=== PATIENT | female | born 1990 | race Caucasian/White ===

== ENCOUNTER 2022-07-08 07:39 | Inpatient (IN) ==
[2022-07-08] MEDS ORDERED: LIDOCAINE 1% LOCAL 20 ML VIAL INFIL PRN (07:46)
[2022-07-08] MEDS ORDERED: OXYTOCIN 30 UNITS/500 ML BAG IV PRN ×3 (07:46→17:51)
--- NOTE | 2022-07-08 07:49 | History & Physical Report ---
Date of Service July 08, 2022 Assessment & Plan (1) with 39 completed weeks gestation: (2) Encounter for induction of labor: Plan Fetus category one. Favorable cervix. Dr. Auguste , when he arrives, will make decision with patient on arom now or pit then arom. Patient desires epidural. anticipate . Admission and Anticipated Discharge Date Admission Date: July 08, 2022 History of Present Illness Chief Complaint: induction Primary Care Provider: SANTIAGO Bradford Patient is a 32yowf G who presents for elective induction of labor at 39 1/7 weeks. Notes good fm. no lof/vb. Occasional contractions. and Delivery Plans Transfer into care @ 13 + weeks PCOS conceived on Metformin ASCUS Pap/ +HPV / - x 3 *colpo 02/05 akh GIOVANNI 3 on biopsy- urgent consult to Dr. Vargas's office.--has sched for 03/02 findings consistent, no bx, plan third trimester colpo and then f/u pp Scheduled for 28 week f/u colpo in Apr.--done 05/11/22, no significant changes noted Plan f/u PP with probable excisional procedure. covid x 2, one booster Flu shot given 03/26/22 - AL OB Labs: Hemoglobin 11.6 g/dl (12.0-16.0) L 05/12/22 Hematocrit 35.8 % (34.1-44.9) 05/12/22 Glucose 1 Hour 50 gm Load 79 mg/dl (70-130) 05/12/22 OB Optional Labs: No Data to Display Labs Reviewed: Initial OB Labs 12/11/21 Blood Type & RH O positive Antibody Screen negative HCT/HGB 40.0/13.4 Platelets 232 Hep C IgG 13yrs+ Old neg Pap Test 01/28/21 WNL Chlamydia negative Gonorrhea negative Rubella immune RPR non- reactive Urine Culture/Screen pseudomonas 12/01, mixed urogenital andrew 12/16 LOUANN HBsAg negative HIV negative MCV 90 Ultrasound Genetic OB Labs CF SMA Panorama 12/16/21 MaterniT 21 WNL Quad Screen MASFP declined ak gbs negative. Allergies Allergy/AdvReac Type Severity Reaction Status Date / Time No Known Allergies Allergy Verified 07/07/22 12:25 Home Medications Medication Instructions Recorded Confirmed Type prenat.vits,angela,lct-yogw-spirq 1 tab PO DAILY 01/06/22 07/07/22 History Patient History Medical History History of chicken pox Shingles Surgical History S/P tonsillectomy S/P wisdom tooth extraction Family History Aunt Ovarian cancer Diabetes Denies family history of Prostate cancer Myocardial infarction Breast cancer Colorectal cancer Social History Smoking Status: Never smoker Second Hand Exposure: No; Hx Alcohol Use: No Hx Substance Use: No Visual Impairment: No Limitations Hearing Ability: Normal marital status: marital status details: Deyvi Hurtado (30) [phone] Current Living Situation: Spouse Current Living Situation Comment: lives with spouse, 3 dogs current occupational status: employed 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 Plans excisional procedure PP. Physical Exam Constitutional: WD/WN, vitals as above Cardiovascular: Extremities: + edema (tr); no calf tenderness Gastrointestinal (Abdomen): soft, gravid, nt Genitourinary: cx--3-/-2 toco--rare efm--130s wtih mod variabilty, accels to 160s, no decels Coding Level of Care Code None Diagnoses with 39 completed weeks gestation Z3A.39 Encounter for induction of labor Z34.90
[2022-07-08] MEDS: LACTATED RINGER'S 1,000 ML IV PRN ×3 (08:30→16:15)
[2022-07-08 08:37] LABS: Hemoglobin 10.9 g/dl (12.0-16.0); Mean Corpuscular Hemoglobin 29.4 pg (25.0-34.0); Mean Corpuscular Volume 88.9 fL (80.0-100.0); Mean Platelet Volume 10.6 fL (9.4-12.4); Platelet Count 167 K/uL (130-400); RDW Coefficient of Variation 14.6 % (11.5-14.5); RDW Standard Deviation 46.9 fL (36.4-46.3); Red Blood Count 3.71 M/uL (4.20-5.40); White Blood Count 7.46 K/ul (4.8-10.8)
[2022-07-08] MEDS ORDERED: fentaNYL citrate 100 MCG/2 ML VIAL ONE (09:08)
[2022-07-08] MEDS ORDERED: SODIUM CHLORIDE 0.9% INJ 10 ML VIAL ONE (09:08)
[2022-07-08] MEDS ORDERED: BUPIVACAINE 0.25% 30 ML VIAL ONE (09:08)
[2022-07-08] MEDS ORDERED: ePHEDrine sulfate 50 MG/ML AMP ONE (09:08)
[2022-07-08] MEDS ORDERED: LIDOCAINE 2%/EPINEPHRINE 1:200,000 20 ML SDV ONE (09:08)
[2022-07-08] MEDS ORDERED: fentaNYL 2MCG/ML ROPIVACAINE 1.25MG/ML 100 ML BAG EPI ONE (09:09)
[2022-07-08] MEDS ORDERED: ePHEDrine sulfate 50 MG/ML AMP IV PRN (09:13)
[2022-07-08] MEDS ORDERED: NALBUPHINE HCL INJ 10 MG/ML AMP IV PRN (09:13)
[2022-07-08] MEDS ORDERED: NALOXONE HCL 1 MG in SODIUM CHLORIDE 0.9% 1000ML 1,000 ML IV PRN (09:13)
[2022-07-08] MEDS ORDERED: fentaNYL 2MCG/ML ROPIVACAINE 1.25MG/ML 100 ML BAG EPI PRN (09:13)
[2022-07-08] MEDS ORDERED: NALOXONE HCL 0.4 MG/1 ML VIAL/CARP IV PRN (09:13)
[2022-07-08] MEDS ORDERED: diphenhydrAMINE 50 MG/ML VIAL IV PRN (09:13)
--- NOTE | 2022-07-08 09:13 | Anesthesiology Consultation ---
Date of Service July 08, 2022 Assessment & Plan (1) Encounter for pre-operative examination: Chart Review Chart Review: Acceptable Risk for Surgery and Patient NOT seen in Pre Admission Testing Consults Requested none History Height/Weight Height: 5 ft 2 in Weight: 93.416 kg Allergies Allergy/AdvReac Type Severity Reaction Status Date / Time No Known Allergies Allergy Verified 07/08/22 08:45 Medications Home Medications Medication Instructions Recorded Confirmed Last Taken prenat.vits,angela,ssz-drhk-bsufi 1 tab PO DAILY 01/06/22 07/08/22 07/07/22 20:00 Tums 1 tab PO PRN Heartburn 07/08/22 07/04/22 20:00 Past Medical History Medical History History of chicken pox Shingles Past Family History Family History Aunt Ovarian cancer Diabetes Denies family history of Prostate cancer Myocardial infarction Breast cancer Colorectal cancer Past Surgical History Surgical History S/P tonsillectomy S/P wisdom tooth extraction Social History Smoking Status: Never smoker Hx Alcohol Use: No Hx Substance Use: No substance use type: does not use Physical Exam Vital Signs Last Vital Signs Temp 98.4 F 07/08/22 08:15 Pulse 72 07/08/22 09:11 Resp 18 07/08/22 08:15 BP 120/66 07/08/22 08:15 Pulse Ox 99 07/08/22 09:11 Testing Laboratory Results 07/08/22 08:11
--- NOTE | 2022-07-08 13:33 | Labor Progress Brief Note ---
Date of Service July 08, 2022 Subjective Reason For Note: Routine Evaluation Assessment & Plan (1) Encounter for induction of labor: Plan: MONET clr. Cat 1. Continue pitocin. Vitals normal (2) with 39 completed weeks gestation: Admission and Anticipated Discharge Date Admission Date: July 08, 2022 Physical Exam Genitourinary: Manual OB Exam: + cervical dilation (3.5), + cervical effacement 70%, + station -2 and + amniotic fluid clear OB Exam Monitor Tracing: + external FHT monitor used, + external uterine monitor used, + category I and + normal FHT variability Results & Data ([facility]) Vital Signs (Past 12 Hours) Vital Signs Temp Pulse Resp BP Pulse Ox 07/08/22 08:15 36.9 C 74 18 120/66 07/08/22 13:28 61 07/08/22 13:28 112/63 07/08/22 13:26 100 07/08/22 13:26 61 07/08/22 13:21 95 07/08/22 13:21 71 07/08/22 13:16 100 07/08/22 13:16 65 07/08/22 13:11 100 07/08/22 13:11 67 07/08/22 13:11 119/67 07/08/22 13:06 100 07/08/22 13:06 67 07/08/22 13:01 100 07/08/22 13:01 68 07/08/22 12:56 100 07/08/22 12:56 63 07/08/22 12:40 18 07/08/22 12:40 36.7 C 18 07/08/22 12:55 64 07/08/22 12:55 116/59 L 07/08/22 12:51 100 07/08/22 12:51 62 07/08/22 12:46 100 07/08/22 12:46 70 07/08/22 12:45 92 07/08/22 12:45 62 07/08/22 12:41 100 07/08/22 12:41 71 07/08/22 12:36 100 07/08/22 12:37 93 07/08/22 12:36 70 07/08/22 12:37 67 07/08/22 12:31 100 07/08/22 12:31 77 07/08/22 12:26 100 07/08/22 12:26 63 07/08/22 12:27 65 07/08/22 12:27 129/74 07/08/22 12:23 91 07/08/22 12:23 68 07/08/22 12:21 100 07/08/22 12:21 67 07/08/22 12:18 92 07/08/22 12:18 68 07/08/22 12:16 91 07/08/22 12:16 60 07/08/22 12:12 91 07/08/22 12:12 74 07/08/22 12:12 156/67 H 07/08/22 12:11 98 07/08/22 12:11 76 07/08/22 12:06 99 07/08/22 12:06 61 07/08/22 12:01 96 07/08/22 12:01 64 07/08/22 11:56 97 07/08/22 11:56 65 07/08/22 11:56 57 L 07/08/22 11:56 116/80 07/08/22 11:54 92 07/08/22 11:54 77 07/08/22 11:51 96 07/08/22 11:51 55 L 07/08/22 11:46 97 07/08/22 11:46 51 L 07/08/22 11:41 97 07/08/22 11:41 57 L 07/08/22 11:41 115/79 07/08/22 11:36 99 07/08/22 11:36 58 L 07/08/22 11:31 97 07/08/22 11:32 92 07/08/22 11:31 57 L 07/08/22 11:32 56 L 07/08/22 11:27 55 L 07/08/22 11:27 112/81 07/08/22 11:26 99 07/08/22 11:26 59 L 07/08/22 11:21 97 07/08/22 11:21 57 L 07/08/22 11:20 94 07/08/22 11:20 61 07/08/22 11:16 96 07/08/22 11:16 58 L 07/08/22 11:11 99 07/08/22 11:11 59 L 07/08/22 11:11 112/59 L 07/08/22 11:11 94 07/08/22 11:11 63 07/08/22 11:06 95 07/08/22 11:06 62 07/08/22 11:00 20 07/08/22 11:00 20 07/08/22 11:01 97 07/08/22 11:01 59 L 07/08/22 10:59 94 07/08/22 10:59 60 07/08/22 10:56 96 07/08/22 10:56 59 L 07/08/22 10:56 55 L 07/08/22 10:56 113/64 07/08/22 10:51 96 07/08/22 10:51 67 07/08/22 10:46 98 07/08/22 10:46 61 07/08/22 10:41 95 07/08/22 10:41 59 L 07/08/22 10:42 59 L 07/08/22 10:42 116/59 L 07/08/22 10:37 94 07/08/22 10:37 62 07/08/22 10:36 95 07/08/22 10:36 69 07/08/22 10:31 96 07/08/22 10:31 65 07/08/22 10:26 96 07/08/22 10:26 77 07/08/22 10:27 66 07/08/22 10:27 103/64 07/08/22 07:45 18 07/08/22 07:45 36.9 C 18 07/08/22 10:22 94 07/08/22 10:22 78 07/08/22 10:21 95 07/08/22 10:21 70 07/08/22 10:16 94 07/08/22 10:17 94 07/08/22 10:16 68 07/08/22 10:17 68 07/08/22 10:12 66 07/08/22 10:12 147/61 H 07/08/22 10:11 95 07/08/22 10:11 66 07/08/22 10:06 96 07/08/22 10:06 68 07/08/22 10:01 95 07/08/22 10:01 76 07/08/22 09:56 96 07/08/22 09:56 78 07/08/22 09:56 77 07/08/22 09:56 140/59 L 07/08/22 09:51 97 07/08/22 09:51 79 07/08/22 09:50 75 07/08/22 09:50 127/70 07/08/22 09:46 96 07/08/22 09:46 81 07/08/22 09:46 74 07/08/22 09:46 135/73 07/08/22 09:41 100 07/08/22 09:41 74 07/08/22 09:41 138/76 07/08/22 09:36 97 07/08/22 09:36 78 07/08/22 09:35 85 07/08/22 09:35 123/83 07/08/22 09:31 100 07/08/22 09:31 87 07/08/22 09:29 93 07/08/22 09:29 95 H 07/08/22 09:26 100 07/08/22 09:26 83 07/08/22 09:21 99 07/08/22 09:21 72 07/08/22 09:16 98 07/08/22 09:16 75 07/08/22 09:11 99 07/08/22 09:11 72 07/08/22 09:06 100 07/08/22 09:06 63 07/08/22 07:47 74 120/66 Coding Level of Care Code None Diagnoses Encounter for induction of labor Z34.90 with 39 completed weeks gestation Z3A.39
[2022-07-08] MEDS ORDERED: BENZOCAINE 20% AER SPR 82.5 GM CAN EXT PRN (17:51)
[2022-07-08] MEDS ORDERED: bisacodyL 10 MG SUPP PR PRN (17:51)
[2022-07-08] MEDS ORDERED: DIPHTHERIA/TETANUS/PERTUSSIS 0.5mL SYR/VIAL (Age 7+yrs) IM ONE (17:51)
[2022-07-08] MEDS ORDERED: HYDROCORTISONE ACETATE 25 MG SUPP PR PRN (17:51)
--- NOTE | 2022-07-08 18:10 | Anesthesia Procedure Note ---
Date of Service July 08, 2022 Anesthesia Post Epidural Note Vital Signs Vital Signs: Temp Pulse Resp BP Pulse Ox 98.4 F 88 18 123/78 98 07/08/22 15:50 07/08/22 17:56 07/08/22 15:50 07/08/22 17:56 07/08/22 17:52 Notes Mental Status: alert / awake / arousable and participated in evaluation Nausea / Vomiting: adequately controlled Pain: adequately controlled Airway Patency, RR, SpO2: stable & adequate BP & HR: stable & adequate Hydration State: stable & adequate Neuraxial Anesthesia: was administered and sensory block is resolving Anesthetic Complications: no major complications apparent and Pt Satisfied with anesthetic care Epidural: Removed without complications and With tip intact
[2022-07-08] MEDS: IBUPROFEN 600 MG TAB PO PRN (19:57)
[2022-07-09] MEDS: IBUPROFEN 600 MG TAB PO PRN ×4 (05:02→20:31)
--- NOTE | 2022-07-09 06:25 | Obstetrical Progress Note ---
Date of Service July 09, 2022 Assessment & Plan (1) care following vaginal delivery: Plan - Overall, feeling well and eating well today - Infant feeding going well without concern - Urinating and passing gas appropriately - Ambulating well in room - Pain controlled w/ Ibuprofen - Hgb 10.9 on 07/08, repeat pending - Vitals stable and wnl - Routine PP care progressing well - Anticipate discharge @ 48-72 hours PP - Recommending f/u outpatient in 6 weeks Admission and Anticipated Discharge Date Admission Date: July 08, 2022 Supervising Physician Co-Signing Physician Notes Patient seen and evaluated and agree with the above findings and plan. Routine care Subjective Patient is a F who is PPD #1 following delivery at 39 1/7. She reports feeling well overall this morning. - Ambulation - well throughout room - Voiding/Mccormick - independent voids, no dysuria or pressure - Gas/Stool - passing gas, no bowel movement - Diet - regular, no nausea or emesis - Lochia - diminishing, light to moderate amount - Feeding Type - breast feeding - Pain Level - 7/10, controlled with Ibuprofen - Discussed options for requesting pain medications Review of Systems - Denies fever, chills, sweats - Denies shortness of breath, difficulty breathing, chest pain, palpitations, chest pressure. - Denies breast pain. - Denies dysuria. - Denies headache or changes in vision. Physical Exam Physical Exam: General: Alert, oriented. No acute distress. Cardiac: RRR, normal S1/S2, no murmurs/rubs/gallops. Respiratory: Non-labored, CTAB, no wheezes/rales/rhonchi. Symmetric chest rise. Abdomen: Soft, nontender, nondistended. Bowel sounds present. Uterus: Uterine fundus firm, palpable 2 cm below umbilicus. Lower Extremities: 1+ lower extremity edema. No deep calf pain. Eulogio's negative bilaterally. Results & Data ([facility]) Vital Signs (Past 12 Hours) Vital Signs Temp Pulse Pulse Resp BP BP Pulse Ox 07/09/22 04:30 36.6 C 79 18 121/75 100 07/08/22 23:30 36.7 C 75 18 132/75 99 07/08/22 19:57 91 H 18 128/66 07/08/22 19:56 91 H 07/08/22 19:56 128/66 02/16/23 19:41 88 07/08/22 19:41 124/62 07/08/22 19:26 86 07/08/22 19:26 121/59 L 07/08/22 19:21 82 07/08/22 19:21 125/66 07/08/22 19:11 107 H 07/08/22 19:11 137/69 07/08/22 18:40 95 H 07/08/22 18:40 119/67 O2 Del Method 07/09/22 04:30 Room Air 07/08/22 23:30 Room Air 07/08/22 19:57 07/08/22 19:56 07/08/22 19:56 07/08/22 19:41 07/08/22 19:41 07/08/22 19:26 07/08/22 19:26 07/08/22 19:21 07/08/22 19:21 07/08/22 19:11 07/08/22 19:11 07/08/22 18:40 07/08/22 18:40 Resident Activity Tracking Resident Involvement: Resident Care Provided Care Provided: OB Delivery
--- NOTE | 2022-07-09 08:09 | Delivery Summary ---
DATE OF SERVICE: 07/08/2022. PROCEDURE: Normal spontaneous vaginal delivery with first-degree perineal laceration repair and a pe riurethral laceration repair. SURGEON: Jaskaran Auguste MD. PREOPERATIVE DIAGNOSES: 1. Single intrauterine at 39 weeks 1 day gestational age. 2. Elective induction of labor. POSTOPERATIVE DIAGNOSES: 1. Single intrauterine at 39 weeks 1 day gestational age. 2. Elective induction of labor. 3. Status post procedure. ESTIMATED BLOOD LOSS: 300 mL DRAINS: Straight cath at the completion of the case. URINE OUTPUT: Per straight cath. COMPLICATIONS: None. FINDINGS: Viable male with weight pending, Apgars of 8 and 9 at one and five minutes respect ively. DESCRIPTION OF PROCEDURE: The patient progressed to 10 cm dilated, 100% effaced, positive 2 station, pushed over intact perineum with epidural anesthesia and delivered a viable male with weight and Apgars as noted above. Head of the delivered in PEYTON position, restituted right transver se. Body and shoulders quickly followed. was noted to be vigorous upon delivery and 1 minut e delayed cord clamping was initiated. Cord was then double clamped and cut. remained on th e maternal abdomen. Cord blood was obtained. Attention was turned to delivery of the placenta, whic h was delivered intact, 3-vessel cord, gentle cord traction. On inspection of the perineum, vagina, cervix, there was noted to be a first-degree laceration, which was repaired with 3-0 Vicryl interrupt ed with a continuous locking stitch and a periurethral laceration repaired with 3-0 Vicryl interrupte d stitch. Needle, sponge, and instrument counts were correct at the completion of the case. Both mo ther and were stable in the immediate post-delivery period. Job ID: [id number]
[2022-07-09] MEDS: FERROUS SULFATE 325 MG TAB PO SCH (08:20)
[2022-07-09] MEDS: DOCUSATE SODIUM 100 MG CAP PO SCH ×2 (08:20→20:31)
[2022-07-09] MEDS: PRENATAL VITAMIN 1 TAB PO SCH (08:21)
[2022-07-09] MEDS: ACETAMINOPHEN 325 MG TAB PO PRN ×3 (08:21→23:19)
[2022-07-09] MEDS ORDERED: bisacodyL 5 MG TABEC PO SCH (20:00)
[2022-07-10] MEDS: IBUPROFEN 600 MG TAB PO PRN ×2 (02:09→06:25)
--- NOTE | 2022-07-10 06:11 | Obstetrical Progress Note ---
Date of Service July 10, 2022 Assessment & Plan (1) care following vaginal delivery: Plan - Overall, feeling well and eating well today - Infant bottle feeding going well, provide resources for breast feeding and pumping per patient request - Urinating and passing gas appropriately - Ambulating well in room - Pain controlled w/ Ibuprofen/Tylenol - Hgb 10.9 on 07/08, repeat pending - Vitals stable and wnl - Routine PP care progressing well - Anticipate discharge @ 24-48 hours PP - Recommending f/u outpatient in 6 weeks Admission and Anticipated Discharge Date Admission Date: July 08, 2022 Supervising Physician Co-Signing Physician Notes Resident Physician Supervision Note: I was present with Dr. Reza during the history and exam. I discussed the case with the resident and agree with the findings and plan as documented in the note. Any exceptions or clarifications are listed here: stable routine care. dc home. f/u 6 wks pp. instructions reviewed. Documented By: Kate Regalado MD, FACOG Subjective Quyen is a 32F who is PPD #2 following delivery at 39 1/7. She reports feeling well overall this morning. - Ambulation - well throughout room - Voiding/Mccormick - independent voids, no dysuria or pressure - Gas/Stool - passing gas, no bowel movement - Diet - regular, no nausea or emesis - Lochia - diminishing, light to moderate amount - Infant Feeding Type - bottle feeding currently, requesting info regarding pumping etc - Pain Level - 4/10, controlled with Ibuprofen/Tylenol Review of Systems - Denies fever, chills, sweats - Denies shortness of breath, difficulty breathing, chest pain, palpitations, chest pressure. - Denies breast pain. - Denies dysuria. - Denies headache or changes in vision. Physical Exam Physical Exam: General: Alert, oriented. No acute distress. Cardiac: RRR, normal S1/S2, no murmurs/rubs/gallops. Respiratory: Non-labored, CTAB, no wheezes/rales/rhonchi. Symmetric chest rise. Abdomen: Soft, nontender, nondistended. Bowel sounds present. Uterus: Uterine fundus firm, palpable 2 cm below umbilicus. Lower Extremities: Trace lower extremity edema. No deep calf pain. Eulogio's negative bilaterally. Results & Data ([facility]) Vital Signs (Past 12 Hours) Vital Signs Temp Pulse Resp BP Pulse Ox O2 Del Method 07/09/22 23:20 36.7 C 78 18 112/72 07/09/22 20:00 36.7 C 82 20 134/74 98 Room Air Resident Activity Tracking Resident Involvement: Resident Care Provided Care Provided: OB Delivery
[2022-07-10 07:33] LABS: Hemoglobin 9.2 g/dl (12.0-16.0)
[2022-07-10] MEDS: FERROUS SULFATE 325 MG TAB PO SCH (08:07)
[2022-07-10] MEDS: DOCUSATE SODIUM 100 MG CAP PO SCH (08:07)
[2022-07-10] MEDS: ACETAMINOPHEN 325 MG TAB PO PRN (08:08)
[2022-07-10] MEDS: PRENATAL VITAMIN 1 TAB PO SCH (08:08)
== END 2022-07-10 12:29 | disposition home or self-care (01) | DRG 807 ==
LOC: 4S1 07:39 → 4E2 20:15

== ENCOUNTER 2024-02-08 07:07 | Inpatient (IN) ==
[2024-02-08] MEDS ORDERED: OXYTOCIN 30 UNITS/NSS 30 UNITS/500 ML BAG IV PRN (11:21)
[2024-02-08] MEDS ORDERED: LIDOCAINE 1% LOCAL 20 ML VIAL INFIL PRN (11:21)
--- NOTE | 2024-02-08 11:27 | History & Physical Report ---
Date of Service February 08, 2024 Assessment & Plan (1) Encounter for supervision of normal in multigravida: Plan: 33 yo at 38 6/7 wga presents in labor VSS Fetus cat 1 labor - augment prn GBS neg desires epidural History of Present Illness Chief Complaint: labor Primary Care Provider: SANTIAGO Bradford 33 yo at 38 6/7 wga presents w/ ctx increasing in frequency and intensity. 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 denies hx stis Allergies Allergy/AdvReac Type Severity Reaction Status Date / Time No Known Allergies Allergy Verified 01/31/24 15:17 Home Medications Medication Instructions Recorded Confirmed Type ferrous sulfate 325 mg (65 mg 325 mg PO DAILY 02/08/24 02/08/24 History iron) tablet (iron) magnesium 250 mg tablet 250 mg PO DAILY 02/08/24 02/08/24 History vits no.124-ferrous fum 1 tab PO DAILY 02/08/24 02/08/24 History 27 mg iron-folic acid 800 mcg tablet ( Vitamin) Patient History Medical History (Updated 02/08/24 @ 08:33 by Melodie Nick RN) Anxiety and depression Encounter for pre-operative examination Encounter for induction of labor with 39 completed weeks gestation Shingles History of chicken pox Surgical History S/P wisdom tooth extraction S/P tonsillectomy Family History Aunt Ovarian cancer Diabetes Mother Diabetes Denies family history of Prostate cancer Myocardial infarction Breast cancer Colorectal cancer Social History (Updated 02/08/24 @ 07:28 by Melodie Nick, STEPHAN) Smoking Status: Never smoker Second Hand Exposure: No; Do You Dip or Chew Tobacco: No; Hx Alcohol Use: No Hx Substance Use: No Preferred Language: Citizen [place] Communication Ability: Effective Visual Impairment: No Limitations Hearing Ability: Normal Chamber Magistrate Required: No Beliefs That Will Affect Care: None marital status: marital status details: Deyvi Hurtado (32) [phone] Current Living Situation: Spouse and Family Current Living Situation Comment: lives with spouse, child, 3 dogs current occupational status: employed current occupation: [employer] Other Information That Helps Us Care for You: No Feels Safe at Home: Yes Childhood Exposure to Second-Hand Smoke: Yes Diet: regular Dental Care, Regularly: No Physical Activity Frequency: Daily Seatbelt Use: always Sunscreen Use: Yes Assistive Devices: None Physical Exam Genitourinary: OB Exam Abdomen: + vertex Manual OB Exam: + cervical dilation 4 cm, + cervical effacement 80% and + station -2 OB Exam Monitor Tracing: + external FHT monitor used, + external uterine monitor used (q5) and + category I (130/mod/+accel/-decel) Initially unchanged from yesterday by nursing exam first, after 2hr zoila had progressed to 4cm Results & Data Vital Signs (Past 12 Hours) Vital Signs Temp Pulse Resp BP 02/08/24 11:22 90 144/67 H 02/08/24 07:30 99.0 F 87 20 134/68 02/08/24 07:25 87 134/68 Laboratory Results OB Labs: Blood Type O Positive 07/13/23 Antibody Screen NEGATIVE 07/13/23 Hgb 11.0 g/dl (12.0-16.0) L 11/30/23 Hct 34.0 % (37.0-47.0) L 11/30/23 MCV 85.5 fL (80.0-100.0) 07/16/23 Plt Count 221 K/uL (130-400) 07/16/23 Rubella IgG Antibody Immune (Immune) 07/13/23 RPR Nonreactive (Nonreactive) 07/13/23 Hep Bs Antigen NON-REACTIVE (NON-REACTIVE) 07/13/23 Hepatitis C Ab (EIA) NON-REACTIVE (NON-REACTIVE) 07/13/23 HIV (1&2) Ag & Ab Conf NON-REACTIVE (NON-REACTIVE) 07/13/23 Glucose 1 Hr 50 gm 101 mg/dl (70-130) 11/30/23 OB Optional Labs: Chlamydia trachomatis RNA Not Detected (NotDetected) 07/13/23 Neisseria gonorrhoeae RNA Not Detected (NotDetected) 07/13/23 Labs Reviewed: cfdna-low risk--mln gbs neg--akh Diagnostic Findings ant plac Coding Level of Care Code None Diagnoses Encounter for supervision of normal in multigravida Z34.80
[2024-02-08] MEDS: LACTATED RINGER'S 1,000 ML IV PRN (11:29)
[2024-02-08 11:52] LABS: Hematocrit (blood only) 36.4 % (37.0-47.0); Hemoglobin 11.8 g/dl (12.0-16.0); Mean Corpuscular Hemoglobin 28.6 pg (25.0-34.0); Mean Corpuscular Hgb Conc 32.4 g/dL (32.0-36.0); Mean Corpuscular Volume 88.1 fL (80.0-100.0); Mean Platelet Volume 10.5 fL (9.4-12.4); Platelet Count 170 K/uL (130-400); RDW Coefficient of Variation 16.1 % (11.5-14.5); RDW Standard Deviation 51.9 fL (36.4-46.3); Red Blood Count 4.13 M/uL (4.20-5.40)
[2024-02-08] MEDS ORDERED: LIDOCAINE 2% MPF LOCAL 5 ML VIAL EPI PRN (12:28)
[2024-02-08] MEDS ORDERED: SODIUM CHLORIDE 0.9% PF INJ 10 ML VIAL EPI PRN (12:28)
[2024-02-08] MEDS ORDERED: diphenhydrAMINE 50 MG/ML VIAL IV PRN (12:28)
[2024-02-08] MEDS ORDERED: fentANYL 2 MCG/ML BUPIVacaine 0.125%-NSS 100ML BAG EPI PRN (12:28)
[2024-02-08] MEDS ORDERED: NALBUPHINE HCL INJ 10 MG/ML AMP IV PRN (12:28)
[2024-02-08] MEDS ORDERED: BUPIVACAINE 0.25% PF 30 ML VIAL EPI PRN (12:28)
[2024-02-08] MEDS ORDERED: fentaNYL citrate PF 100 MCG/2 ML VIAL EPI PRN (12:28)
[2024-02-08] MEDS ORDERED: ROPIVACAINE 0.5% PF 5 MG/ML 20 ML VIAL EPI PRN (12:28)
[2024-02-08] MEDS ORDERED: NALOXONE HCL 1 MG in SODIUM CHLORIDE 0.9% 1,000 ML IV PRN (12:28)
[2024-02-08] MEDS ORDERED: NALOXONE HCL 0.4 MG/1 ML VIAL/CARP IV PRN (12:28)
[2024-02-08] MEDS ORDERED: ePHEDrine sulfate 50 MG/ML AMP IV PRN (12:28)
--- NOTE | 2024-02-08 12:30 | Anesthesiology Consultation ---
Date of Service February 08, 2024 Assessment & Plan (1) Encounter for pre-operative examination: Chart Review Chart Review: Patient NOT seen in Pre Admission Testing and Acceptable Risk for Labor Epidural Consults Requested none History Height/Weight Height: 5 ft 2 in Weight: 91.172 kg Allergies Allergy/AdvReac Type Severity Reaction Status Date / Time No Known Allergies Allergy Verified 01/31/24 15:17 Medications Home Medications Medication Instructions Recorded Confirmed Last Taken ferrous sulfate 325 mg (65 mg 325 mg PO DAILY 02/08/24 02/08/24 Unknown iron) tablet (iron) magnesium 250 mg tablet 250 mg PO DAILY 02/08/24 02/08/24 02/07/24 vits no.124-ferrous fum 1 tab PO DAILY 02/08/24 02/08/24 02/07/24 27 mg iron-folic acid 800 mcg tablet ( Vitamin) Active Medications Generic Name Dose Route Start Last Admin Trade Name Freq PRN Reason Stop Dose Admin Lactated Ringer's 1,000 mls @ 125 mls/hr 02/08/24 11:21 02/08/24 12:36 Lr IV 02/10/24 11:20 999 mls/hr .Q8H PRN Administration L&D Protocol Protocol Past Medical History Medical History Anxiety and depression Encounter for pre-operative examination Encounter for induction of labor with 39 completed weeks gestation Shingles History of chicken pox Exercise / Class Metabolic Activity II 4-5 Yardwork/Stairs/Walk up hill Past Family History Family History Aunt Ovarian cancer Diabetes Mother Diabetes Denies family history of Prostate cancer Myocardial infarction Breast cancer Colorectal cancer Past Surgical History Surgical History S/P wisdom tooth extraction S/P tonsillectomy Past Anesthesia History No Hx of Anesthesia Complications and No Family Hx of Anesthesia Complications History of PONV No Hx of PONV and No Hx of Motion Sickness Social History Smoking Status: Never smoker Do You Dip or Chew Tobacco: No Hx Alcohol Use: No Hx Substance Use: No substance use type: does not use Physical Exam Vital Signs Last Vital Signs Temp 37.2 C 02/08/24 07:30 Pulse 99 H 02/08/24 12:55 Resp 20 02/08/24 12:26 BP 103/55 L 02/08/24 12:55 Pulse Ox 99 02/08/24 12:55 Testing Laboratory Results 02/08/24 11:35 Blood Type O Positive 02/08/24 11:35 Antibody Screen NEGATIVE 02/08/24 11:35
[2024-02-08] MEDS: LIDOCAINE 2%/EPINEPHRINE 1:200,000 20 ML PF ONE (12:47)
[2024-02-08] MEDS: BUPIVACAINE 0.25% PF 30 ML VIAL ONE (12:47)
[2024-02-08] MEDS: fentaNYL citrate PF 100 MCG/2 ML VIAL ONE (12:51)
[2024-02-08] MEDS: fentANYL 2 MCG/ML BUPIVacaine 0.125%-NSS 100ML BAG ONE (12:51)
[2024-02-08] MEDS: ePHEDrine sulfate 50 MG/ML AMP ONE (13:01)
[2024-02-08] MEDS: SODIUM CHLORIDE 0.9% PF INJ 10 ML VIAL ONE (13:14)
[2024-02-08] MEDS: LIDOCAINE 2%/EPINEPHRINE 1:200,000 20 ML PF EPI STA (13:14)
[2024-02-08] MEDS: BUPIVACAINE 0.25% PF 30 ML VIAL EPI STA (13:14)
[2024-02-08] MEDS: fentaNYL citrate PF 100 MCG/2 ML VIAL EPI STA (13:14)
[2024-02-08] MEDS: SODIUM CHLORIDE 0.9% PF INJ 10 ML VIAL EPI STA (13:15)
[2024-02-08] MEDS: ONDANSETRON INJ 2 MG/ML 2 ML VIAL IV PRN (13:27)
[2024-02-08] MEDS: OXYTOCIN 30 UNITS/NSS 30 UNITS/500 ML BAG IV PRN (16:10)
--- NOTE | 2024-02-08 18:22 | Labor Progress Brief Note ---
Date of Service February 08, 2024 Subjective Feeling pressure Assessment & Plan (1) Encounter for supervision of normal in multigravida: Plan: 33 yo at 38 6/7 wga presents in labor VSS Fetus cat 1 labor - pit was started due to ctx spacing after epidural, forebag ruptured. Continue augmentation GBS neg epidural in place Admission and Anticipated Discharge Date Admission Date: February 08, 2024 Physical Exam Genitourinary: Manual OB Exam: + cervical dilation 8 cm, + cervical effacement 80%, + station 0 and + amniotic fluid (arom forebag) OB Exam Monitor Tracing: + external FHT monitor used, + external uterine monitor used (q5) and + category I (130/mod/+accel/-decel) Results & Data Vital Signs (Past 12 Hours) Vital Signs Temp Pulse Resp BP Pulse Ox 02/08/24 18:18 82 122/59 L 02/08/24 18:15 88 100 02/08/24 18:10 81 100 02/08/24 18:09 76 135/58 L 02/08/24 18:05 80 100 02/08/24 18:03 75 129/59 L 02/08/24 18:00 80 100 02/08/24 17:58 88 125/89 02/08/24 17:55 88 133/63 98 02/08/24 17:50 101 H 97 02/08/24 17:48 99.0 F 92 H 20 119/56 L 02/08/24 17:45 89 98 02/08/24 17:43 88 20 130/68 02/08/24 17:40 105 H 97 02/08/24 17:38 88 124/64 02/08/24 17:35 81 97 02/08/24 17:33 80 132/72 02/08/24 17:30 90 96 02/08/24 17:29 95 H 127/63 02/08/24 17:25 87 97 02/08/24 17:23 86 123/65 02/08/24 17:20 80 97 02/08/24 17:18 81 132/71 02/08/24 17:15 86 98 02/08/24 17:13 78 132/63 02/08/24 17:10 92 H 99 02/08/24 17:05 81 129/59 L 100 02/08/24 17:00 98.6 F 82 20 100 02/08/24 16:55 85 140/91 100 02/08/24 16:50 72 99 02/08/24 16:48 75 118/56 L 02/08/24 16:45 100 H 100 02/08/24 16:42 86 100/55 L 02/08/24 16:40 72 100 02/08/24 16:37 79 110/56 L 02/08/24 16:35 72 100 02/08/24 16:33 91 H 108/56 L 02/08/24 16:30 81 100 02/08/24 16:29 85 20 106/59 L 02/08/24 16:26 73 91 02/08/24 16:25 71 98 02/08/24 16:22 97 H 109/67 02/08/24 16:20 86 100 02/08/24 16:17 97 H 112/65 02/08/24 16:15 82 98 02/08/24 16:14 95 H 113/69 02/08/24 16:10 83 100 02/08/24 16:09 79 122/60 02/08/24 16:05 84 100 02/08/24 16:04 83 109/52 L 02/08/24 16:00 82 100 02/08/24 15:58 99 H 106/51 L 02/08/24 15:55 87 99 02/08/24 15:54 90 20 123/59 L 02/08/24 15:50 86 100 02/08/24 15:47 71 20 98/56 L 02/08/24 15:45 79 99 02/08/24 15:44 76 108/50 L 02/08/24 15:40 79 99 02/08/24 15:38 81 106/59 L 02/08/24 15:35 97 H 100 02/08/24 15:33 92 H 92/66 L 02/08/24 15:30 88 99 02/08/24 15:29 98.6 F 91 H 20 93/54 L 02/08/24 15:25 84 99 02/08/24 15:23 92 H 104/54 L 02/08/24 15:20 83 99 02/08/24 15:18 80 106/54 L 02/08/24 15:15 90 99 02/08/24 15:13 82 111/53 L 02/08/24 15:10 98 H 100 02/08/24 15:05 83 100 02/08/24 15:00 96 H 99 02/08/24 14:59 89 112/58 L 02/08/24 14:55 80 100 02/08/24 14:52 99 H 113/56 L 02/08/24 14:50 102 H 100 02/08/24 14:47 86 118/57 L 02/08/24 14:45 83 97 02/08/24 14:43 90 124/63 02/08/24 14:40 95 H 97 02/08/24 14:38 85 123/59 L 02/08/24 14:35 86 96 02/08/24 14:34 86 107/55 L 02/08/24 14:30 80 97 02/08/24 14:29 89 91 02/08/24 14:25 82 99 02/08/24 14:22 95 H 112/57 L 02/08/24 14:20 80 98 02/08/24 14:18 81 113/57 L 02/08/24 14:15 84 96 02/08/24 14:12 88 112/56 L 02/08/24 14:10 80 97 02/08/24 14:07 78 108/55 L 02/08/24 14:05 76 97 02/08/24 14:02 83 107/63 02/08/24 14:00 86 98 02/08/24 13:58 83 108/60 02/08/24 13:55 85 99 02/08/24 13:52 86 20 112/55 L 02/08/24 13:50 83 99 02/08/24 13:47 96 H 20 110/56 L 02/08/24 13:45 85 100 02/08/24 13:42 84 20 102/55 L 02/08/24 13:40 83 99 02/08/24 13:38 93 H 20 111/54 L 02/08/24 13:35 86 99 02/08/24 13:31 83 116/75 02/08/24 13:30 88 100 02/08/24 13:26 97 H 20 103/57 L 02/08/24 13:25 98 H 98 02/08/24 13:22 90 179/70 H 02/08/24 13:20 87 100 02/08/24 13:19 93 H 115/57 L 02/08/24 13:17 93 H 101/52 L 02/08/24 13:15 99 H 103/56 L 100 02/08/24 13:13 100 H 20 109/53 L 02/08/24 13:11 100 H 107/52 L 02/08/24 13:10 105 H 99 02/08/24 13:09 100 H 108/52 L 02/08/24 13:07 92 H 20 109/55 L 02/08/24 13:05 93 H 107/56 L 99 02/08/24 13:03 81 112/59 L 02/08/24 13:01 65 80/44 L 02/08/24 13:00 65 97 02/08/24 12:59 82 88/44 L 02/08/24 12:57 82 20 92/55 L 02/08/24 12:55 99 02/08/24 12:55 99 H 02/08/24 12:55 94 H 18 103/55 L 02/08/24 12:53 99 H 114/59 L 02/08/24 12:51 98 H 20 115/60 02/08/24 12:50 89 99 02/08/24 12:49 80 20 116/59 L 02/08/24 12:47 81 20 121/63 02/08/24 12:45 78 20 124/69 99 02/08/24 12:40 97 H 100 02/08/24 12:35 92 H 100 02/08/24 12:30 89 99 02/08/24 12:26 77 20 112/67 02/08/24 12:25 78 99 02/08/24 12:08 80 98 02/08/24 12:03 82 98 02/08/24 11:58 95 H 98 02/08/24 11:53 85 97 02/08/24 11:48 85 98 02/08/24 11:43 91 H 99 02/08/24 11:38 81 99 02/08/24 11:22 90 20 144/67 H 02/08/24 07:30 99.0 F 87 20 134/68 02/08/24 07:25 87 134/68 Coding Level of Care Code None Diagnoses Encounter for supervision of normal in multigravida Z34.80
--- NOTE | 2024-02-08 22:02 | Anesthesia Procedure Note ---
Date of Service February 08, 2024 Anesthesia Post Epidural Note Vital Signs Vital Signs: Temp Pulse Resp BP Pulse Ox 36.8 C 78 18 121/63 89 L 02/08/24 19:10 02/08/24 21:27 02/08/24 20:45 02/08/24 21:27 02/08/24 20:23 Notes Mental Status: alert / awake / arousable and participated in evaluation Nausea / Vomiting: adequately controlled Pain: adequately controlled Airway Patency, RR, SpO2: stable & adequate BP & HR: stable & adequate Hydration State: stable & adequate Neuraxial Anesthesia: was administered and sensory block is resolving Anesthetic Complications: no major complications apparent and Pt Satisfied with anesthetic care Epidural: Removed without complications and With tip intact
--- NOTE | 2024-02-08 22:08 | Delivery Summary ---
Vaginal Delivery Summary Date of Service February 08, 2024 Vaginal Delivery Summary and 2nd Degree LAC PREOPERATIVE DIAGNOSIS: 1. Single intrauterine at 38 6/7 wga 2. Labor POSTOPERATIVE DIAGNOSIS: 1. Single intrauterine at 38 6/7 wga 2. Labor 3. Delivered PROCEDURE: 1. Normal spontaneous vaginal delivery. SURGEON: Rebecca Dykes MD ANESTHESIA: Epidural. QUANTITATIVE BLOOD LOSS: 25 mL FLUIDS: Continuous LR. URINE OUTPUT: None. COMPLICATIONS: None. CONDITION: Stable. INDICATIONS: 33 yo at 38 6/7 wga presented with contractions increasing in frequency and intensity. She was noted to progress from 3 to 4cm and admitted. She received an epidural for pain control. She did have srom but required pitocin for contractions. At next check, forebag was arom'd and she continued to progress to complete and desired to push. FINDINGS: A viable male , weight pending with Apgars of 8 and 9 at 1 and 5 minutes respectively. SPECIMEN: Cord blood OPERATIVE REPORT: The patient progressed to 10 cm, 100% effaced and +2 station, pushed over intact perineum with anesthesia to deliver a viable male , weight and Apgars as above. Head of delivered in PEYTON position. No nuchal cord was present. Body and shoulders were delivered without difficulty. was delivered to maternal abdomen and nursing staff. Delayed cord clamping was performed for 60 seconds. Cord was clamped and cut. Cord blood was obtained. Placenta delivered spontaneously intact with 3-vessel cord. IV oxytocin and fundal massage were given for excellent hemostasis. Vagina, cervix, perineum, and placenta were inspected. A left periurethral laceration was repaired using 4-0 vicryl. There was excellent hemostasis. Sponge and needle counts correct x2. No sponges were left behind. Mother and stable in immediate period. [facility] Vaginal Delivery Charge Vaginal Delivery Codes: 00155 global code for the antepartum, delivery, and post- Delivery Type Details: and 2nd Degree LAC
[2024-02-08] MEDS: BENZOCAINE 20% SPRY 85 APPLN/85 GM CAN EXT ONE (23:29)
[2024-02-08] MEDS: IBUPROFEN 600 MG TAB PO ONE (23:29)
[2024-02-09] MEDS ORDERED: HYDROCORTISONE ACETATE 25 MG SUPP PR PRN (00:54)
[2024-02-09] MEDS ORDERED: OXYTOCIN 30 UNITS/NSS 30 UNITS/500 ML BAG IV PRN (00:54)
[2024-02-09] MEDS ORDERED: BENZOCAINE 20% SPRY 85 APPLN/85 GM CAN EXT PRN (00:54)
[2024-02-09] MEDS ORDERED: bisacodyL 10 MG SUPP PR PRN (00:54)
[2024-02-09] MEDS ORDERED: DIPHTHER/TETAN/PERTUS Vaccine (Tdap, Adol/Adult) 0.5mL IM ONE (00:54)
[2024-02-09] MEDS: IBUPROFEN 600 MG TAB PO PRN (03:44)
[2024-02-09] MEDS: ACETAMINOPHEN 325 MG TAB PO PRN (06:34)
--- NOTE | 2024-02-09 06:42 | Obstetrical Progress Note ---
Date of Service February 09, 2024 Assessment & Plan (1) Normal labor and delivery: Plan: 1st PPD 24 hours will be completed in the evening. No issues. Vitals: Stable( BP on lower side but she is doing ok) Possible discharge by evening. Admission and Anticipated Discharge Date Admission Date: February 08, 2024 Supervising Physician Co-Signing Physician Notes Resident Physician Supervision Note: I interviewed and examined the patient. Discussed with Dr. Saavedra and agree with findings and plan as documented in the note. Any exceptions or clarifications are listed here: PP1 s/p , doing well. Desires dc at 24 hrs Documented By: Rebecca Dykes MD Subjective 1st PPD foll with laceration at 38 wekks POG Doing well Feels exhausted Lochia: Moderate Bottle feeding: no Br issue No gas, Urination normally Normal diet Review of Systems Review of Systems: As per HPI Physical Exam Physical Exam: General: Alert and oriented. No acute distress. CV: Regular rate and rhythm. No murmurs. Respiratory: CTA bilaterally. No rhonchi, wheezes, or crackles. No increased work of breathing. Abdomen: Positive bowel sounds. Soft, nontender, non distended. Uterus: Fundus firm and palpable few cm below the umbilicus. Involuting Lower extremities: No LE edema. No deep calf pain. Results & Data Vital Signs (Past 12 Hours) Vital Signs Temp Pulse Pulse Resp BP BP BP 02/09/24 03:45 37.0 C 74 18 95/58 L 02/08/24 23:30 36.7 C 88 18 98/56 L 02/08/24 22:27 75 108/53 L 02/08/24 22:12 79 114/59 L 02/08/24 21:27 78 121/63 02/08/24 20:57 141 H 109/78 02/08/24 20:45 18 02/08/24 20:42 95 H 113/82 02/08/24 20:29 86 112/62 02/08/24 20:23 90 02/08/24 20:21 90 02/08/24 20:18 203 H 204/153 H 02/08/24 20:16 90 02/08/24 20:13 203 H 181/85 H 02/08/24 20:11 107 H 02/08/24 20:05 106 H 02/08/24 20:04 100 H 131/60 02/08/24 20:00 93 H 02/08/24 19:58 78 141/73 H 02/08/24 19:55 02/08/24 19:55 99 H 02/08/24 19:55 98 H 135/63 02/08/24 19:50 82 02/08/24 19:49 87 02/08/24 19:48 91 H 103/51 L 02/08/24 19:45 89 02/08/24 19:43 80 105/53 L 02/08/24 19:42 82 02/08/24 19:40 88 02/08/24 19:36 99 H 02/08/24 19:35 102 H 02/08/24 19:34 78 85/52 L 02/08/24 19:30 97 H 18 02/08/24 19:28 90 02/08/24 19:27 86 124/59 L 02/08/24 19:25 92 H 02/08/24 19:24 89 120/58 L 02/08/24 19:20 95 H 02/08/24 19:18 82 107/57 L 02/08/24 19:15 82 02/08/24 19:13 89 107/53 L 02/08/24 19:10 36.8 C 16 02/08/24 19:10 86 02/08/24 19:05 88 02/08/24 19:03 89 131/71 02/08/24 19:00 84 143/84 H 02/08/24 18:58 89 02/08/24 18:55 87 02/08/24 18:54 126 H 117/68 02/08/24 18:51 88 02/08/24 18:50 85 02/08/24 18:48 89 140/91 02/08/24 18:45 89 02/08/24 18:44 85 150/58 H 02/08/24 18:40 83 02/08/24 18:39 81 122/70 Pulse Ox O2 Del Method 02/09/24 03:45 99 Room Air 02/08/24 23:30 97 Room Air 02/08/24 22:27 02/08/24 22:12 02/08/24 21:27 02/08/24 20:57 02/08/24 20:45 02/08/24 20:42 02/08/24 20:29 02/08/24 20:23 89 L 02/08/24 20:21 99 02/08/24 20:18 02/08/24 20:16 99 02/08/24 20:13 02/08/24 20:11 98 02/08/24 20:05 77 L 02/08/24 20:04 02/08/24 20:00 99 02/08/24 19:58 02/08/24 19:55 78 L 02/08/24 19:55 02/08/24 19:55 90 02/08/24 19:50 98 02/08/24 19:49 90 02/08/24 19:48 02/08/24 19:45 98 02/08/24 19:43 02/08/24 19:42 88 L 02/08/24 19:40 100 02/08/24 19:36 93 02/08/24 19:35 94 02/08/24 19:34 02/08/24 19:30 97 02/08/24 19:28 83 L 02/08/24 19:27 02/08/24 19:25 99 02/08/24 19:24 02/08/24 19:20 99 02/08/24 19:18 02/08/24 19:15 100 02/08/24 19:13 02/08/24 19:10 02/08/24 19:10 100 02/08/24 19:05 99 02/08/24 19:03 02/08/24 19:00 100 02/08/24 18:58 83 L 02/08/24 18:55 100 02/08/24 18:54 02/08/24 18:51 94 02/08/24 18:50 95 02/08/24 18:48 02/08/24 18:45 100 02/08/24 18:44 02/08/24 18:40 99 02/08/24 18:39 Resident Activity Tracking Resident Involvement: Resident Care Provided Care Provided: OB Delivery
[2024-02-09] MEDS: FERROUS SULFATE 325 MG TAB PO SCH (07:43)
[2024-02-09] MEDS: PRENATAL VITAMIN 1 TAB PO SCH (07:44)
[2024-02-09] MEDS: DOCUSATE SODIUM 100 MG CAP PO SCH (07:44)
[2024-02-09 16:45] VITALS: TEMP 99
[2024-02-09] MEDS: oxyCODONE HCL IR 5 MG TAB (IMMEDIATE RELEASE) PO STA (18:40)
[2024-02-09 19:28] VITALS: PULSE 73; RESP 16; O2SAT 98
[2024-02-09 19:32] VITALS: BP 98/56
[2024-02-09] MEDS: bisacodyL 5 MG TABEC PO SCH (19:58)
== END 2024-02-09 20:50 | disposition home or self-care (01) | DRG 768 ==
LOC: OPB 07:07 → 4S1 07:12 → 4E2 22:56
DX: Z3A.38 38 weeks gestation of pregnancy; Z37.0 Single live birth; O71.82 Other specified trauma to perineum and vulva